=== PATIENT | male | born 2000 | race Two or more races ===

== ENCOUNTER 2022-07-22 16:11 | Emergency (ER) | payer MEDICAID, OTHER ==
[~2022-07-22] VITALS: Ht 182.9 cm; Wt 63.8 kg
[2022-07-22 17:38] LABS: Basophils # (auto) 0 10 ^3/uL (0-0.2); Basophils % (auto) 0.7 % (0.0-2.0); Eosinophils # (auto) 0 10 ^3/uL (0-0.8); Eosinophils % (auto) 0.7 % (0.0-7.0); Hematocrit 47.6 % (41.0-53.0); Hemoglobin 15.8 g/dL (13.5-17.5); Lymphocytes # (auto) 2.4 10 ^3/uL (0.4-5.4); Lymphocytes % (auto) 37.9 % (10.0-50.0); Mean Corpuscular Hemoglobin 31.2 pg (28.0-32.0); Mean Corpuscular Hgb Conc. 33.2 g/dL (32.0-36.0); Monocytes # (auto) 0.6 10 ^3/uL (0-1.3); Monocytes % (auto) 9.5 % (0.0-12.0); Neutrophils # (auto) 3.2 10 ^3/uL (1.6-8.6); Neutrophils % (auto) 51.2 % (37.0-80.0); Nucleated Red Blood Cells % 0.1 %; Red Blood Cells 5.07 10^6/uL (4.5-5.90); Red Cell Distribution Width 13.4 % (11.8-14.3); White Blood Cell 6.3 10^3/uL (4.4-10.8)
[2022-07-22 17:53] LABS: Albumin 4.3 g/dL (3.4-5.0); Magnesium 2.3 mg/dL (1.6-2.6); Potassium 4.3 mmol/L (3.5-5.1)
[2022-07-22 17:56] LABS: BUN/Creatinine Ratio 8.3
[2022-07-22 17:58] LABS: Bilirubin, Total 0.2 mg/dL (0.2-1.0); Total Protein 7.8 g/dL (6.4-8.2)
[2022-07-22] MEDS ORDERED: traMADol HCL 50 MG TAB PO ONE (19:00)
[2022-07-22 20:53] VITALS: BP 135/92
== END 2022-07-22 20:57 | disposition home or self-care (01) ==
LOC: ER 16:11
DX: G44.209 Tension-type headache, unspecified, not intractable (principal); R56.9 Unspecified convulsions; F12.10 Cannabis abuse, uncomplicated; R42 Dizziness and giddiness
CPT/HCPCS: 36415; 70450; 80053; 83735; 85025

== ENCOUNTER 2022-09-10 11:29 | Emergency (ER) | payer MEDICAID ==
[~2022-09-10] VITALS: Ht 193 cm; Wt 63.8 kg
[2022-09-10 14:27] VITALS: BP 125/72
[2022-09-10] MEDS ORDERED: cefTRIAXone SOD 1,000 MG VL IM ONE (14:30)
[2022-09-10] MEDS ORDERED: ACETAMINOPHEN 325 MG TAB PO ONE (14:30)
[2022-09-10] MEDS ORDERED: IBUP600T27 PO (14:42)
[2022-09-10] MEDS ORDERED: AZIT250T8 PO (14:42)
== END 2022-09-10 14:55 | disposition home or self-care (01) ==
LOC: ER 11:29
DX: J02.9 Acute pharyngitis, unspecified (principal)
CPT/HCPCS: 96372; 99283; J0696